=== PATIENT | female | born 1955 | race African-American/Black ===

== ENCOUNTER 2018-12-02 06:52 | Day surgery (SDC) | payer OTHER ==
--- NOTE | 2018-11-30 15:59 | RAD REPORT ---
EXAM DESCRIPTION: Martha Cedeno (2 Views)11/30/2018 3:53 pm CLINICAL HISTORY: Preop for surgery to remove right buttock mass COMPARISON: None FINDINGS: The lungs are hyperaerated. The lungs appear clear of acute infiltrate. The heart is normal size IMPRESSION: No acute abnormalities displayed
[2018-11-30 16:16] LABS: Absolute Lymphocytes (CBC) 1.6 K/uL (0.7-4.9); Basophils % 1.1 % (0-1.3); Hematocrit 40.8 % (36.0-45.0); Lymphocytes % 32.6 % (15.3-44.8); MPV 11.6 fL (7.6-11.3); RBC Red Blood Cell Count 4.27 M/uL (3.86-4.86)
[2018-11-30 16:37] LABS: Potassium 4.1 mmol/L (3.5-5.1)
--- NOTE | 2018-12-01 13:39 | EKG ---
Test Date: 2018-11-30 Test Time: 15:30:06 [employer]: LUIZ MEASUREMENT RESULTS: Intervals: Rate: 56 AK: 146 QRSD: 80 QT: 440 QTc: 424 Odon: P: 11 AK: 146 QRS: 77 T: 71 INTERPRETIVE STATEMENTS: Sinus bradycardia Otherwise normal ECG No previous ECG available for comparison Electronically Signed On 12-01-18 13:34:26 CDT by Rohit Adrian
[2018-12-02] MEDS ORDERED: Ringers Lactate 1,000 ML IV ONE (08:02)
[2018-12-02] MEDS ORDERED: CEFAZOLIN/SWI 1gm 1 GM/10 ML SYR ONE (08:03)
[2018-12-02] MEDS ORDERED: PROPOFOL 200 MG/20 ML VIAL IV ONE ×2 (08:11→09:07)
[2018-12-02] MEDS ORDERED: FENTANYL CITR 100 MCG/2 ML ONE ×2 (08:12→09:07)
[2018-12-02] MEDS ORDERED: LIDOCAINE 1% MPF 5 ML VIAL ONE (08:12)
[2018-12-02] MEDS ORDERED: MIDAZOLAM HCL 2 MG/2 ML INJ ONE ×2 (08:12→09:07)
[2018-12-02] MEDS ORDERED: BUPIVACAINE 0.5% PF 10 ML VIAL ONE (08:20)
[2018-12-02] MEDS ORDERED: LIDOCAINE 2% MPF 5 ML VIAL ONE (09:07)
--- NOTE | 2018-12-02 09:25 | P.BOP ---
Preoperative diagnosis: right buttock mass 3x3cm Postoperative diagnosis: right buttock mass 3x3cm Primary procedure: Excisional biopsy of right buttock tender mass 3x3cm Terminal Block Assembler: NONE,NONE Estimated blood loss: <10cc Specimen: mass Findings: right buttock mass Anesthesia: General Complications: None
[2018-12-02] MEDS ORDERED: KETOROLAC 30 MG/ML INJ ONE (09:50)
--- NOTE | 2018-12-02 21:09 | OP ---
Date of Procedure: 12/02/2018 Surgeon: Willis Cedillo MD Postoperative Diagnosis: Tender right buttock mass 3 x 3 cm. Postoperative Diagnosis: Tender right buttock mass 3 x 3 cm. Procedure: Excisional biopsy of tender right buttock mass 3 x 3 cm. Anesthesia: General plus local. Estimated Blood Loss: Less than 10 cc. Indications: This is the case of a female who comes to us with a mass in the right buttock that is t florin. Every time she sits, this mass does not let her sit comfortable and that would pain. She wan ts that excised, very tender. Benefits and risks of excisional biopsy of right buttock mass fully ex plained, which include but are not limited to infection, bleeding, damage to adjacent structures, ane sthesia complication, [place], even . She also understands this may not relieve any symptoms. She m ight need more than one surgical intervention. She understood and signed the consent. The area of bab[place] york was marked by me and the patient in the holding room. Description Of Procedure: Patient was brought to the operating room, placed in supine position. Ane sthesia was done without complication. Patient was placed in lateral decubitus position with proper protection. Time-out was called. Right buttock was prepped and draped in sterile fashion. Incision was made in the skin. Incision was carried down to the deep subcutaneous tissue, deep to the fatty tissue and next to the muscle we have this fatty tumor present. It was carefully excised with the he lp of blunt dissection to make sure the entire mass is out. The area was irrigated, hemostasis obtai annie and then this was closed in layers. Deep layers with chromic with 2-0 chromic and more superfici al layers with 3-0 chromic with Steri-Strip on top. This was after hemostasis and irrigation and loc al anesthetic was applied. Patient tolerated the procedure well. Patient was sent to recovery in st able condition. Sponge count and instrument counts were correct. Disposition: Home. Activity: As tolerated. No heavy lifting. Followup: Follow up in my office in 1 week. Call for appointment [phone]. Instructions: Keep area dry for 48 hours and then may shower. Keep Steri-Strips intact. Medications: See orders. HM/MODL Voice ID: [id number] Report ID: [id number]
== END 2018-12-02 10:55 | disposition home or self-care (01) ==
LOC: OR 06:52
PROVIDERS: ATTEND Surgery
PROC: 0JBC0ZZ Excision of Pelvic Region Subcutaneous Tissue and Fascia, Open Approach (ICD-10-PCS; principal; 2018-12-02 09:15)
DX: D17.79 Benign lipomatous neoplasm of other sites (principal)
CPT/HCPCS: 27043; 93005; 85025; 80048; 36415; 88305; 71046; J2704; J2250; J3010; J0690

== ENCOUNTER 2019-01-13 06:15 | Day surgery (SDC) | payer OTHER ==
[2019-01-11 11:47] LABS: Absolute Lymphocytes (CBC) 1.7 K/uL (0.7-4.9); Basophils % 1.2 % (0-1.3); Hematocrit 39.3 % (36.0-45.0); Lymphocytes % 33.3 % (15.3-44.8); MPV 11.2 fL (7.6-11.3)
[2019-01-11 12:07] LABS: Potassium 4.2 mmol/L (3.5-5.1)
[2019-01-13] MEDS ORDERED: Ringers Lactate 1,000 ML IV ONE (06:49)
[2019-01-13] MEDS ORDERED: MIDAZOLAM HCL 2 MG/2 ML INJ ONE (07:10)
[2019-01-13] MEDS ORDERED: FENTANYL CITR 100 MCG/2 ML ONE (07:10)
[2019-01-13] MEDS ORDERED: LIDOCAINE 1% MPF 5 ML VIAL ONE (07:10)
[2019-01-13] MEDS ORDERED: PROPOFOL 200 MG/20 ML VIAL IV ONE (07:10)
[2019-01-13] MEDS: CEFAZOLIN/SWI 1gm 1 GM/10 ML SYR ONE ×2 (07:46→07:50)
[2019-01-13] MEDS ORDERED: KETOROLAC 30 MG/ML INJ ONE (08:02)
[2019-01-13] MEDS ORDERED: ONDANSETRON 4 MG/2 ML VIAL ONE (08:04)
--- NOTE | 2019-01-13 08:16 | P.BOP ---
Preoperative diagnosis: tender left lateral thigh subQ mass Postoperative diagnosis: same Primary procedure: Excisional biopsy of tender left lateral thigh subQ mass 5x3cm Clerical Dentist Assistant: LINDSEY MAI (SNUFF MAKER) Estimated blood loss: <5cc Specimen: left lateral thigh subQ mass Findings: as above Anesthesia: General Transferred to: Recovery Room Condition: Good
[2019-01-13] MEDS ORDERED: MORPHINE 4 MG/ML SYR ONE (08:24)
[2019-01-13 08:31] VITALS: O2SAT 100
[2019-01-13] MEDS ORDERED: CODEINE 30MG/APAP 300MG TAB ONE (09:08)
[2019-01-13 09:19] VITALS: BP 160/83; TEMP 97.4
--- NOTE | 2019-01-13 23:05 | OP ---
Date of Procedure: 01/13/2019 Surgeon: Willis Cedillo MD Preoperative Diagnosis: Tender left lateral thigh subcutaneous mass. Postoperative Diagnosis: Tender left lateral thigh subcutaneous mass. Procedure: Excisional biopsy of tender left thigh subcutaneous mass, 5 x 3 cm. Estimated Blood Loss: Less than 5 mL. Specimens: Subcutaneous mass. Findings: Subcutaneous mass went all the way down to fascia of the muscle. Does not seem to be pene trating the muscle. Indications: This is the case of a 63-year-old patient with a mass in the lateral thigh. Given the apparent discomfort, she does remember any trauma. She thinks it is getting bigger and more tender a nd she wants that excised. The benefits, alternatives, and risks of excision were fully explained to the patient, which include, but are not limited to infection, bleeding, damage to adjacent structure s, anesthesia complications, nonhealing wound, [place], and even . She also understands this may not relieve any symptoms, she might need more than one surgical intervention. She understood, signed a consent. The area of concern was marked by me and the patient in the holding room. Description Of Procedure: The patient was brought to the operating room, placed in supine position, anesthesia was done without complication. Left lateral thigh was prepped and draped in a sterile fas hion. A time-out was called. An incision was made over the area. Incision was carried down to deep subcutaneous tissue. We found the mass seating just on top of the fascia. The mass was completely excised. The area was irrigated. Then this was approximated with 3-0 chromic and Steri-Strips on to p. The area was irrigated and hemostasis was obtained before closure. Patient was sent to recovery in stable condition. Disposition: Home. Activities: As tolerated. No heavy lifting. Followup: Follow up in my office in 1 week. Call for appointment [phone]. Keep area dry for 48 ho urs, then may shower. Keep Steri-Strips intact. Medications: See orders. HM/MODL Voice ID: [id number] Report ID: [id number]
== END 2019-01-13 09:40 | disposition home or self-care (01) ==
LOC: OR 06:15
PROVIDERS: ATTEND Surgery
PROC: 0JBM0ZZ Excision of Left Upper Leg Subcutaneous Tissue and Fascia, Open Approach (ICD-10-PCS; principal; 2019-01-13 07:30)
DX: R22.42 Localized swelling, mass and lump, left lower limb (principal); F17.210 Nicotine dependence, cigarettes, uncomplicated
CPT/HCPCS: 36415; 80048; 85025; 88304; J0690; J2250; J2405; J2704; J3010